=== PATIENT | male | born 1960 | race Caucasian/White ===

== ENCOUNTER 2022-02-17 18:40 | Emergency (ER) | payer BC ==
[2022-02-17] MEDS ORDERED: Bacitracin Oint 1 GM U/D Packet TOP ONE (19:31)
[2022-02-17] MEDS ORDERED: Lidocaine 1% 5 ML VIAL INJECT ONE (19:31)
== END 2022-02-17 20:39 | disposition home or self-care (01) ==
LOC: JP.ED 18:40 → EDSEX 18:40 → JP.ED 20:39
DX: S61.213A Laceration without foreign body of left middle finger without damage to nail, initial encounter (principal); S61.203A Unspecified open wound of left middle finger without damage to nail, initial encounter
CPT/HCPCS: 12001; 73140-26-F2; 73140-F2; 99283